=== PATIENT | male | born 1975 | race African-American/Black ===

== ENCOUNTER 2017-07-06 17:27 | Emergency (ER) | payer OTHER ==
[~2017-07-06] VITALS: Ht 182.9 cm; Wt 135.0 kg
[~2017-07-06 17:27] MED LIST: Ecotrin PO; ZESTRIL,PRINIVI40 MG PO
[2017-07-06 19:06] LABS: HEMATOCRIT 38.6 % (38.0-50.0); HEMOGLOBIN 12.8 G/DL (12.5-16.6); MCH 27.5 PG (29.0-34.0); MCHC 33.2 G/DL (30.0-36.0); MCV 82.8 FL (86-99); PLATELET COUNT 369 K/uL (156-360); RBC DIS.WIDTH-CV 13.2 % (11.8-14.6); RBC DIS.WIDTH-SD 40.1 % (39-53); RED BLOOD COUNT 4.66 M/uL (4.00-5.50); WHITE BLOOD COUNT 8.2 K/uL (4.1-10.2)
[2017-07-06 19:19] LABS: CHLORIDE 105 mEq/L (99-109); POTASSIUM 4.4 mEq/L (3.7-5.4); SODIUM 138 mEq/L (136-147)
[2017-07-06 19:21] LABS: GLUCOSE 91 mg/dL (70-99)
[2017-07-06 19:24] LABS: CREATININE 1.5 mg/dL (0.6-1.3); GFR ESTIMATE (CALCULATED) > 59 mL/min/ (58.99-99999)
[2017-07-06 19:25] LABS: UREA NITROGEN (BUN) 21 mg/dL (9-23)
[2017-07-06 19:29] LABS: TROP-I INTERPRETATION NEGATIVE; TROPONIN-I 0.02 ng/mL (0.0-0.30)
[2017-07-06 22:38] LABS: TROP-I INTERPRETATION NEGATIVE; TROPONIN-I < 0.01 ng/mL (0.0-0.30)
[2017-07-06] MEDS ORDERED: TRAMADOL HCL50 MG PO (22:41)
[2017-07-06] MEDS ORDERED: SKELAXIN800 MG PO (22:41)
[2017-07-07 00:04] VITALS: BP 130/84
== END 2017-07-07 00:04 | disposition home or self-care (01) ==
LOC: EME 17:27
PROVIDERS: Physician Assistant
DX: R07.89 Other chest pain (principal); I10 Essential (primary) hypertension; Z79.82 Long term (current) use of aspirin; Z90.49 Acquired absence of other specified parts of digestive tract; Z88.0 Allergy status to penicillin
CPT/HCPCS: 71046; 80048; 84484; 85027; 93005; 99281; 99285